=== PATIENT | female | born 1995 | race Caucasian/White ===

== ENCOUNTER 2016-06-15 09:44 | Emergency (ER) ==
--- NOTE | 2016-06-15 10:13 | PROVIDER DOCUMENTATION ---
HPI-Abdominal Pain/GI Problem <Gus Valenzuela - Last Filed: 06/15/16 12:29> - General Source: patient - History of Present Illness-ABD Nature of Presenting Problems: patient is a 20 y/o F that presents to the ER with RUQ pain since this am upon awakening. patient reports n/d but no vomiting. Denies fever/chills, dysuria, or back pain. reports a dry cough and pain worse with deep inspiration. History of Cholelithasis, believes it is flaring up. Abdominal Pain Onset Location: reports: RUQ Pain Radiation: reports: no radiation Severity in ED: reports: mild Onset/Duration: reports: abrupt, this morning Timing: reports: still present, constant Activities at Onset: reports: sleep Modifying Factors: improves with: nothing Associated Symptoms: reports: cough, diarrhea, dizziness, nausea, pain with inspiration. denies: back/neck pain, chest pain, constipation, fever/chills, genitourinary problems, muscle aches, rash, swelling/mass in abdomen, vomiting Similar Symptoms Previously?: Yes Recently seen or treated by another doctor?: No <Rich Keyes - Last Filed: 06/15/16 12:32> - General Chief Complaint: Abdominal Pain Stated Complaint: rt side pain Time Seen by Provider: 06/15/16 10:04 Allergies/Adverse Reactions: Patient Allergies Allergy/AdvReac Type Severity Reaction Status Date / Time naproxen Allergy HIVES Verified 06/15/16 09:56 Home Medications: Home Medication List Medication Instructions Recorded Confirmed Last Taken Type No Home Medications 06/15/16 06/15/16 Unknown History Review of Systems - Adult - REVIEW OF SYSTEMS - ADULT Constitutional: denies: chills, fever Eyes: reports: no symptoms reported Ears, Nose, Mouth & Throat: denies: ear pain, sinus problem, throat pain Cardiovascular: denies: chest pain, palpitations, syncope Respiratory: reports: cough, pleurisy. denies: shortness of breath, wheezing Gastrointestinal: reports: abdominal pain, diarrhea, nausea. denies: constipation, rectal bleeding, vomiting Genitourinary: denies: dysuria, frequency, hematuria, urgency Musculoskeletal: denies: back pain, joint pain, neck pain Integumentary: denies: rash Neurological: reports: no symptoms reported Psychiatric: reports: no symptoms reported Endocrine: reports: no symptoms reported Hematologic/Lymphatic: reports: no symptoms reported Allergic/Immunologic: reports: no symptoms reported All Other Systems: Reviewed and Negative <Rich Keyes - Last Filed: 06/15/16 12:32> Past History - Adult - PAST MEDICAL HISTORY-ADULT Review of Records: reports: Old Records Reviewed, Nursing Assessment Review, Medications Reviewed Respiratory: reports: asthma, sleep apnea Gastrointestinal: reports: cholelithiasis Psychiatric: reports: anxiety - PRIOR SURGERIES/PROCEDURES Surgical/Procedure History: reports: none - IMMUNIZATION STATUS Childhood Immunizations: UTD, See Nurse Assessment Flu Vaccine: See Nurse Assessment - FAMILY HISTORY Family History: reviewed, not pertinent - SOCIAL HISTORY Smoking: cigarettes, less than 1 pack/day Alcohol Use Frequency: occasionally Living Situation: family <Rich Keyes - Last Filed: 06/15/16 12:32> Physical Exam-General - PHYSICAL EXAM-ADULT Initial Vital Signs Reviewed: Yes - CONSTITUTIONAL General Appearance: alert, no apparent distress - EYES Eyes: PERRL/EOMI, pink conjunctivae - HEAD, EARS, NOSE, MOUTH & THROAT HENMT: normocephalic/atraumatic, moist mucous membranes, normal ENT inspection - NECK Neck: full range of motion, normal inspection. negative: lymphadenopathy - RESPIRATORY Respiratory: lungs clear, normal breath sounds, no respiratory distress, no accessory muscle use - CARDIOVASCULAR Cardiovascular: regular rate, rhythm, no edema, no murmur - GASTROINTESTINAL (ABDOMEN) Abdominal Exam: normal bowel sounds, soft, no organomegaly, no pulsatile mass, tenderness (RUQ), Elliott's sign. negative: distended, guarding, rigid, rebound , McBurney's point tenderness - MUSCULOSKELETAL Back Exam: normal inspection, no CVA tenderness, no vertebral tenderness Extremity: normal range of motion, normal inspection, no pedal edema, normal capillary refill - SKIN Integumentary: normal color, warm/dry - NEUROLOGIC Neurologic: grossly normal, no motor/sensory deficits - PSYCHIATRIC Psych/Mental Status: normal mood/affect, normal thought content, normal thought process, oriented x 3 <Rich Keyes - Last Filed: 06/15/16 12:32> Progress - REASSESSMENT Reassessment #1 Time Reassessed: 12:30 (long discussion about diet and restricting carbs to reduce weight) Status: unchanged <Gus Valenzuela Last Filed: 06/15/16 12:29> - PLAN OF CARE/RESULTS Progress/Plan/Lab Results: plan of care-labs, xray, u/s gb Vital Signs Temp Pulse Resp BP Pulse Ox 06/15/16 09:54 97.9 F 92 H 18 122/75 100 naproxen Allergy (Verified 06/15/16 09:56) HIVES No Home Medications 06/15/16 Dietary Diet NPO Start WedJun 15 09 Laboratory 06/15/16 06/15/16 06/15/16 10:30 10:29 10:29 WBC 7.74 RBC 4.66 Hgb 13.6 Hct 41.0 MCV 88.0 MCH 29.2 MCHC 33.2 RDW Std Deviation 13.2 Plt Count 268 MPV 10.4 Immature Gran % (Auto) 0.3 Neut % (Auto) 64.3 Lymph % (Auto) 26.2 Power % (Auto) 6.3 Eos % (Auto) 2.6 Baso % (Auto) 0.3 Immature Gran # (Auto) 0.02 Neut # (Auto) 4.98 Lymph # (Auto) 2.03 Power # (Auto) 0.49 Eos # (Auto) 0.20 Baso # (Auto) 0.02 Sodium 139 Potassium 4.3 Chloride 104 Carbon Dioxide 23 L Anion Gap 12 BUN 10 Creatinine 0.7 Estimated GFR/1.73 m2 > 60 BUN/Creatinine Ratio 14 Glucose 112 H Calculated Osmolality 277 Calcium 8.9 Total Bilirubin 0.12 L AST 16 ALT 22 Alkaline Phosphatase 82 Total Protein 7.4 Albumin 3.9 Globulin 3.5 Albumin/Globulin Ratio 1.1 Amylase 28 Lipase 27 Urine Source CLEAN CATCH Urine Color YELLOW Urine Turbidity CLEAR Urine pH 6.5 Ur Specific [place] 1.024 Urine Protein NEGATIVE Ur Glucose (Stick) NEGATIVE Ur Ketones (Stick) NEGATIVE Urine Blood NEGATIVE Urine Nitrite NEGATIVE Urine Bilirubin NEGATIVE Urobilinogen Dipstick NORMAL Urine Leukocytes NEGATIVE Urine WBC (Auto) <10 Urine RBC (Auto) <10 U Epithel Cells (Auto) <10 Urine Bacteria (Auto) 2+ Orders Category Date Time Status ED: Urine Bedside ORDERED Care 06/15/16 10:37 Active Saline Loc DIRECTED Care 06/15/16 09:58 Active NPO Diet 06/15/16 09:58 Active US GB < RUQ (LIMITED) [US] Stat Exams 06/15/16 10:10 Draft AMYLASE [CHEM] Stat Lab 06/15/16 10:29 Completed CBC WITH ELECTRONIC DIFF [HEME] Stat Lab 06/15/16 10:29 Completed COMPREHENSIVE METABOLIC PANEL [CHEM] Stat Lab 06/15/16 10:29 Completed LIPASE [CHEM] Stat Lab 06/15/16 10:29 Completed URINALYSIS W/POSS RFLX CULT [URINALYSIS] Stat Lab 06/15/16 10:30 Completed URINE CULTURE [RM] Routine Lab 06/15/16 11:52 Received pt will be d/c home f/[facility] pcp, pt was clinically stable, pt understood instructions and results - ULTRASOUND (By Radiology) 1 US Study: Gallbladder Impression: Normal US Results: negative per <Rich Keyes - Last Filed: 06/15/16 12:32> Departure <Gus Valenzuela - Last Filed: 06/15/16 12:29> - Departure Time of Disposition Order: 12:31 Certified Medical Emergency: Emergent <Rich Keyes - Last Filed: 06/15/16 12:32> - Departure DIAGNOSIS: Obesity (BMI 35.0-39.9 without comorbidity), Gastroenteritis Disposition: HOME 01 Condition: Stable Additional Instructions: ED Follow Up Instructions: You have been treated by a care provider in the Emergency Department. These instructions are being provided to you so you can have an understanding of how to care for yourself upon discharge. Upon discharge from the Emergency Department, you are responsible for making arrangements for follow-up care by a physician of your choice. Take all prescribed medications as directed. Return to the Emergency Department immediately for any new or worsening symptoms. You may call the Physician Referral phone number at [phone] to obtain a list of Physicians who are taking new patients. Referrals: None,PCP [Primary Care Provider] - Instructions: Viral Gastroenteritis, [id number] Attestation - Scribe Verification/Attestation Scribe:: Rich Keyes Acting as Scribe for:: Gus Valenzuela Scribe documention review:: This chart was documented by a scribe and accurately reflects the service the provider performed and the decisions made by the provider. <Rich Keyes - Last Filed: 06/15/16 12:32> Physician Attestation - Physician Attestation I, the provider, attest to the following statement:: Gus Valenzuela Physician documentation Attestation:: This documentation recorded by the scribe accurately reflects the service I personally performed and the decisions made by me. <Rich Keyes - Last Filed: 06/15/16 12:32>
[2016-06-15 10:43] LABS: URINE MICRO REVIEW NEEDED? NO; URINE SOURCE CLEAN CATCH
[2016-06-15 10:43] LABS: MANUAL DIFF NEEDED? NO
[2016-06-15 10:48] LABS: BASO% 0.3 % (0.0-0.8); EOS% 2.6 % (0.0-10.0); HEMOGLOBIN 13.6 g/dL (12.0-16.0); IMM GRAN# 0.02 X1000 (0.0-0.04); IMM GRAN% 0.3 % (0.0-0.5); LYMPH# 2.03 X1000 (1.2-3.4); LYMPH% 26.2 % (20.5-51.1); MCH 29.2 PG (27-31); MCHC 33.2 g/dL (33-37); MONO# 0.49 X1000 (0.11-0.59); MONO% 6.3 % (1.7-9.3); MPV 10.4 FL (7.4-10.4); NEUT% 64.3 % (42.2-75.2); PLT 268 X1000 (130-400); RBC 4.66 XMIL (4.2-5.4)
[2016-06-15 10:53] LABS: BILIRUBIN URINE NEGATIVE (NEGATIVE); BLOOD URINE NEGATIVE (NEGATIVE); COLOR YELLOW; GLUCOSE URINE NEGATIVE (NEGATIVE); LEUKOCYTES URINE NEGATIVE (NEGATIVE); NITRITE URINE NEGATIVE (NEGATIVE); PH URINE 6.5; PROTEIN URINE NEGATIVE (NEGATIVE); SP GRAVITY URINE 1.024; TURBIDITY URINE CLEAR (CLEAR); UROBILINOGEN URINE NORMAL (NORMAL)
[2016-06-15 10:55] LABS: UR EPITHELIAL CELLS <10 /HPF (<10); URINE BACTERIA 2+ /HPF; URINE CULTURE NEEDED? YES; URINE RBC <10 /HPF (<10); URINE WBC <10 /HPF (<10)
[2016-06-15 11:20] LABS: AGAP 12; ALBUMIN 3.9 g/dL (3.5-5.0); ALKALINE PHOSPHATASE 82 U/L (32-104); AMYLASE 28 U/L (20-200); BUN 10 mg/dL (8-22); CALCIUM 8.9 mg/dL (8.8-10.2); CHLORIDE 104 mmol/L (98-107); COSMO 277; GOT 16 U/L (10-30); GPT 22 U/L (10-36); LIPASE 27 U/L (13-60); POTASSIUM 4.3 mmol/L (3.5-5.1); SODIUM 139 mmol/L (136-145); TCO2 23 mmol/L (25-35); TOTAL BILIRUBIN 0.12 mg/dL (0.20-1.00); TOTAL PROTEIN 7.4 g/dL (6.3-8.3)
--- NOTE | 2016-06-15 12:14 | Diag Imaging Result Document ---
PROCEDURE NAME: US GB < RUQ (LIMITED) - 06/15/2016 RIGHT UPPER QUADRANT ULTRASOUND, 06/15/2016: COMPARISON: None. FINDINGS: The liver, gallbladder, pancreas and right kidney are normal. The common bile duct measures 3 mm. Aorta, IVC, and main portal vein are patent. IMPRESSION: Negative exam.
[2016-06-15 13:18] VITALS: BP 103/71
== END 2016-06-15 13:22 | disposition home or self-care (01) ==
LOC: ED 09:44
DX: K52.9 Noninfective gastroenteritis and colitis, unspecified (principal); E66.9 Obesity, unspecified; Z68.39 Body mass index [BMI] 39.0-39.9, adult; R10.11 Right upper quadrant pain; R19.7 Diarrhea, unspecified; R11.0 Nausea; F17.210 Nicotine dependence, cigarettes, uncomplicated
CPT/HCPCS: 76705; 80053; 81001; 82150; 83690; 85025; 87088